=== PATIENT | male | born 1985 | race Two or more races ===

== ENCOUNTER → 2016-09-21 | Day surgery (SDC) | payer OTHER ==
[~2016-09-21] MED LIST: ACETAMINOPHEN 1000 MG/100 ML VIAL IV ONE; ACETAMINOPHEN/HYDROcodone 325 MG/5 MG TAB ONE; BUPIVACAINE/EPINEPHRINE 0.25% 50 ML VIAL ONE; KETOROLAC TROMETHAMINE 30 MG/ML (IVP) VIAL IV PUSH ONE; LACTATED RINGER'S 1000 ML INJ 1,000 ML ONE; LOMO PO; LORT5TAB PO; MIDAZOLAM HCL 2 MG/2 ML VIAL ONE; ONDANSETRON HCL 4 MG/2 ML VIAL IV PUSH ONE; PROPOFOL 200 MG/20 ML AMP IV ONE; Z.0.NO CURRENT MEDS; ceFAZolin INJ 1,000 MG VIAL ONE
--- NOTE | 2016-09-21 12:19 | TN ---
cc: JESSICA STORY D.O., JOSEPH D. M.D. DATE OF SURGERY 09/21/2016 PREOPERATIVE DIAGNOSIS Right inguinal hernia. POSTOPERATIVE DIAGNOSIS Right inguinal hernia. PROCEDURE Repair right inguinal hernia with mesh. ANESTHESIA General SURGEON Dr. Wheat DIRECTOR EPIDEMIOLOGY Ms. Deepthi Blevins, advanced registered nurse practitioner INDICATIONS This is a pleasant 30-year-old gentleman who had a symptomatic reducible right inguinal hernia. He set for surgical intervention. PROCEDURE The patient was taken to the operating room, placed in the supine position. After anesthesia, his abdomen and right groin was prepped with Betadine. We had done a time-out. He was given preoperative antibiotics. We made an oblique incision overlying the internal/external ring after anesthetizing with a Marcaine solution, dissect down through Denton's fascia identifying the external oblique aponeurosis which was incised. Cord structures surrounded with a Kennedy drain. A small inguinal hernia was reduced. It is an indirect type. The piece of polypropylene mesh is cut to size, secured to the pubic tubercle, Evangelist's ligament and the iliopubic tract out laterally and the conjoined tendon medially, all done with 0-Ethilon. The tails were then secured to themselves. The ilioinguinal nerve is preserved. The external oblique aponeurosis was then closed with a 2-0 Vicryl, Denton's with a 2-0 Vicryl and skin with a 4-0 Monocryl. Steri-Strips applied. Sterile bandage applied. The patient tolerated the procedure well and had no immediate postop complication at the time of this dictation. Gómez Wheat MD JCLARA/MARY BETH /12:03 PM /12:10 PM
== END | disposition home or self-care (01) ==
LOC: ESDC 10:00
PROVIDERS: ATTEND Surgery
DX: K40.90 Unilateral inguinal hernia, without obstruction or gangrene, not specified as recurrent (principal)
CPT/HCPCS: 00830; 49505; C1781; J0131; J0690; J1885; J2250; J2405; J3010; J7120